=== PATIENT | male | born 1950 | race Caucasian/White ===

== ENCOUNTER → 2016-06-03 | Outpatient (CLI) | payer BC ==
--- NOTE | 2016-06-03 15:59 | EKG ---
[address] [address] Measurements Intervals [place] Rate: 61 P: 74 [place]: 180 QRS: 0 QRSD: 84 T: 89 QT: 417 QTc: 420 Interpretive Statements SINUS RHYTHM No previous ECG available for comparison Electronically Signed On 06-04-16 09:17:44 MST by Trung Acosta [email or web address]
--- NOTE | 2016-06-03 17:04 | DI ---
HISTORY: Shortness of breath on exertion. COMPARISON: None available. FINDINGS: Possible emphysema with superimposed pulmonary venous congestion. No lobar infiltrate. N o pleural effusion seen. No evidence of pneumothorax. IMPRESSION: 1. Possible emphysema with superimposed pulmonary venous congestion.
== END ==
LOC: EKG 15:40
PROVIDERS: ATTEND Family Medicine
DX: R06.02 Shortness of breath (principal); I10 Essential (primary) hypertension
CPT/HCPCS: 71020; 93005; 93010; 94060